=== PATIENT | female | born 2000 | race Caucasian/White ===

== ENCOUNTER 2019-04-25 15:44 | Emergency (ER) | payer OTHER ==
[~2019-04-25] VITALS: Ht 165.1 cm; Wt 99.8 kg
--- NOTE | 2019-04-25 15:55 | NUR ---
18 YEAR OLD FEMALE BIB SELF C/O RIGHT knee pain x 3 days. ALERT AND ORIENTED X4, BREATHING EVEN AND UNLABORED WITH NO DISTRESS NOTED. SKIN INTACT. WAITING TO BE SEEN BY
[2019-04-25] MEDS ORDERED: IBUPROFEN 400 MG TABLET ONE (16:39)
[2019-04-25] MEDS ORDERED: IBUPROFEN 400 MG TABLET PO ONE (17:00)
--- NOTE | 2019-04-25 17:31 | NUR ---
Patient discharged to home in stable condition. Written and verbal after care instructions given. Patient verbalizes understanding of instruction.
[2019-04-25 17:32] VITALS: BP 128/80
== END 2019-04-25 17:33 | disposition home or self-care (01) ==
LOC: ER 15:49
DX: M25.561 Pain in right knee (principal); K59.00 Constipation, unspecified; Z88.2 Allergy status to sulfonamides; Z88.1 Allergy status to other antibiotic agents
CPT/HCPCS: 73564-TC